=== PATIENT | female | born 1945 | race Caucasian/White ===

== ENCOUNTER 2024-06-07 16:40 | Emergency (ER) | payer MEDICARE, OTHER ==
[2024-06-07] MEDS: Acetaminophen 325 MG Tab PO ONE (18:58)
[2024-06-07] MEDS: Ketorolac 10 MG Tab PO ONE (18:59)
== END 2024-06-07 20:02 | disposition home or self-care (01) ==
LOC: JD.ED 16:40
DX: S42.294A Other nondisplaced fracture of upper end of right humerus, initial encounter for closed fracture (principal); J45.909 Unspecified asthma, uncomplicated; E03.9 Hypothyroidism, unspecified; Z87.891 Personal history of nicotine dependence; Z79.890 Hormone replacement therapy; Z79.51 Long term (current) use of inhaled steroids; Z79.899 Other long term (current) drug therapy; Z88.1 Allergy status to other antibiotic agents; Z88.0 Allergy status to penicillin; Z88.2 Allergy status to sulfonamides; W01.0XXA Fall on same level from slipping, tripping and stumbling without subsequent striking against object, initial encounter
CPT/HCPCS: 73060; 73080; 73200; 99284; A9270

== ENCOUNTER 2024-06-15 09:42 | Day surgery (SDC) | payer MEDICARE, OTHER ==
[~2024-06-15 09:42] MED LIST: Sodium Chloride 0.9% 10 ML Syringe FLUSH PRN; Sodium Chloride 0.9% 10 ML Syringe FLUSH SCH
[2024-06-15] MEDS: Lactated Ringers 1,000 ML IV SCH (10:00)
[2024-06-15] MEDS ORDERED: dexmedeTOMIDine HCl 200 MCG/2 ML SDV ONE (10:43)
[2024-06-15] MEDS ORDERED: Ropivacaine 0.5% 5 MG/ML 30 ML SDV ONE (10:43)
[2024-06-15] MEDS ORDERED: fentaNYL 100 MCG/2 ML SDV ONE ×3 (10:45→13:29)
[2024-06-15] MEDS ORDERED: Propofol 200 MG/20 ML SDV ONE (11:30)
[2024-06-15] MEDS ORDERED: Rocuronium 50 MG/5 ML Vial ONE (11:30)
[2024-06-15] MEDS ORDERED: Ondansetron 4 MG/2 ML SDV ONE (11:45)
[2024-06-15] MEDS ORDERED: Dexamethasone 4 MG/ML 5 ML MDV ONE (11:45)
[2024-06-15] MEDS ORDERED: ePHEDrine 50 MG/ML SDV ONE (11:50)
[2024-06-15] MEDS ORDERED: Phenylephrine 1% 10 MG/ML SDV ONE (11:56)
[2024-06-15] MEDS ORDERED: HYDROmorphone 0.5 MG/0.5 ML Syringe IVPUSH PRN (12:09)
[2024-06-15] MEDS ORDERED: Clindamycin Phosphate in D5W 900 MG in Premix Bag 1 BAG IV ONE (12:30)
[2024-06-15] MEDS: Tranexamic Acid 1,000 MG/10 ML Vial ONE (13:31)
[2024-06-15] MEDS: VANCOmycin 1 GM SDV ONE (13:31)
[2024-06-15] MEDS ORDERED: Sugammadex Sodium 200 MG/2 ML VIAL IV ONE (13:32)
[2024-06-15] MEDS: fentaNYL 100 MCG/2 ML SDV IVPUSH PRN (14:26)
[2024-06-15] MEDS: traMADol 50 MG Tab PO PRN (15:42)
[2024-06-15] MEDS: Ondansetron 4 MG/2 ML SDV IVPUSH PRN (15:49)
== END 2024-06-15 18:15 | disposition home or self-care (01) ==
LOC: JD.SDS 09:42
PROVIDERS: ATTEND Orthopaedic Surgery
DX: S42.201A Unspecified fracture of upper end of right humerus, initial encounter for closed fracture (principal); E03.9 Hypothyroidism, unspecified; Z88.0 Allergy status to penicillin; Z88.2 Allergy status to sulfonamides; Z79.899 Other long term (current) drug therapy; Z79.890 Hormone replacement therapy; Z87.891 Personal history of nicotine dependence
CPT/HCPCS: 23472; 23630; 64415; 76000; 97110; 97116; 97161; A9270; C1713; C1769; C1776; J1100; J2371; J2405; J2704; J2795; J3010; J3490; J7120